=== PATIENT | male | born 1970 | race Caucasian/White ===

== ENCOUNTER → 2017-09-28 | Outpatient (CLI) | payer OTHER ==
[~2017-09-28] MED LIST: IOPAMIDOL (ISOVUE-370) 150 ML BTL IV ONE
== END ==
LOC: FIMAGING 07:45
PROVIDERS: ATTEND Family Medicine
DX: M79.662 Pain in left lower leg (principal); R53.1 Weakness; I77.1 Stricture of artery
CPT/HCPCS: Q9967

== ENCOUNTER 2018-01-28 03:27 | Observation (INO) | payer OTHER ==
--- NOTE | 2018-01-28 03:51 | EDPHY ---
H & P Stated Complaint: lower abd pain around incision from vascular surgery 3 weeks ago. 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 He had a vascular surgery on his left iliac artery with a bovine graft 3 weeks ago at [facility]. 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 He states that he has been recovering well until this evening when he noticed the lump and had increased pressure in the area. No urinary symptoms. No changes in bowel movements. No fevers. No vomiting. He had a history of previous surgery in the left inguinal hernia. REVIEW OF SYSTEMS: Constitutional: denies: chills, fever, recent illness, recent injury EENTM: denies: blurred vision, double vision, nose congestion Respiratory: denies: cough, shortness of breath Cardiac: denies: chest pain, irregular heart rate, lightheadedness, palpitations Gastrointestinal/Abdominal: See HPI Genitourinary: denies: dysuria, frequency, hematuria, pain Musculoskeletal: denies: joint pain, muscle pain Skin: denies: lesions, rash, jaundice, bruising Neurological: denies: headache, numbness, paresthesia, tingling, dizziness, weakness Hematologic/Lymphatic: denies: blood clots, easy bleeding, easy bruising Immunologic/allergic: denies: HIV/AIDS, transplant EXAM: GENERAL: Well-appearing, well-nourished and in no acute distress. HEAD: Atraumatic, normocephalic. EYES: Pupils equal round and reactive to light, extraocular movements intact, sclera anicteric, conjunctiva are normal. ENT: TMs normal, nares patent, oropharynx clear without exudates. Moist mucous membranes. NECK: Normal range of motion, supple without lymphadenopathy or JVD. LUNGS: Breath sounds clear to auscultation bilaterally and equal. No wheezes rales or rhonchi. HEART: Regular rate and rhythm without murmurs, rubs or gallops. ABDOMEN: Small fluctuant lump but the medial aspect of the incision, not dehisced, not draining. Not erythematous. Soft, nontender, normoactive bowel sounds. No guarding, no rebound. BACK: No CVA tenderness, no spinal tenderness, step-offs or deformities EXTREMITIES: Normal range of motion, no pitting or edema. No clubbing or cyanosis. NEUROLOGICAL: Cranial nerves II through XII grossly intact. Normal speech, normal gait. 5/5 strength, normal movement in all extremities, normal sensation PSYCH: Normal mood, normal affect. SKIN: Warm, dry, normal turgor, no visible rashes or lesions. 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 R femur ORIF, L inguinal hernia repair. - Family History Significant Family History: No pertinent family hx - Social History Smoking Status: Never smoked Alcohol Use: None Constitutional: Initial Vital Signs Temperature (C) 36.4 C 01/28/18 03:42 Heart Rate 68 01/28/18 03:42 Respiratory Rate 14 01/28/18 03:42 Blood Pressure 146/91 H 01/28/18 03:42 O2 Sat (%) 98 01/28/18 03:42 O2 Delivery Mode Room Air Allergies/Adverse Reactions: No Known Allergies Allergy (Unverified 01/28/18 03:41) Home Medications: Medication Instructions Recorded Aspirin [Aspirin 81mg (*)] 01/28/18 Ergocalciferol [Vitamin D2 (*)] 01/28/18 Medical Decision Making - Diagnostics Imaging: Discussed imaging studies w/ event promoter Radiologist ED Course/Re-evaluation: 5:20 a.m. I discussed the case patient and . Lab work is reassuring however CT scan is concerning for small-bowel volvulus verses internal hernia. Also possibly pseudoaneurysm at the incision site. Radiology is recommending possibly another CT scan with rectal contrast and also and ultrasound with Doppler to evaluate the incision questionable pseudoaneurysm. Spoke with Dr. Marleny Olmos who accepted the patient to her service. Family would prefer to drive the patient themselves. Differential Diagnosis: Partial list of the Differential diagnosis considered include but were not limited to; urinary tract infection, hernia, volvulus, seroma, pseudoaneurysm and although unlikely based on the history and physical exam, I also considered abscess, ischemia. I discussed these differential diagnoses and the plan with the patient as well as the usual and expected course. The patient understands that the diagnosis is provisional and that in medicine we are not always correct and that further workup is often warranted. Usual and customary warnings were given. All of the patient's questions were answered. The patient was instructed to return to the emergency department should the symptoms at all worsen or return, otherwise to followup with the physician as we discussed. - Data Points Laboratory Results: Laboratory Results 01/28/18 03:50 01/28/18 01/28/18 01/28/18 04:00 03:59 03:50 WBC 8.33 10^3/uL 10^3/uL (3.80-9.50) RBC 4.86 10^6/uL 10^6/uL (4.40-6.38) Hgb 15.6 g/dL g/dL (13.7-17.5) Hct 45.0 % % (40.0-51.0) MCV 92.6 fL fL (81.5-99.8) MCH 32.1 pg pg (27.9-34.1) MCHC 34.7 g/dL g/dL (32.4-36.7) RDW 12.2 % % (11.5-15.2) Plt Count 369 10^3/uL 10^3/uL (150-400) MPV 9.1 fL fL (8.7-11.7) Neut % (Auto) 66.5 % % (39.3-74.2) Lymph % (Auto) 21.5 % % (15.0-45.0) [place] % (Auto) 6.1 % % (4.5-13.0) Eos % (Auto) 4.9 % % (0.6-7.6) Baso % (Auto) 0.8 % % (0.3-1.7) Nucleat RBC Rel Count 0.0 % % (0.0-0.2) Absolute Neuts (auto) 5.53 10^3/uL 10^3/uL (1.70-6.50) Absolute Lymphs (auto) 1.79 10^3/uL 10^3/uL (1.00-3.00) Absolute Monos (auto) 0.51 10^3/uL 10^3/uL (0.30-0.80) Absolute Eos (auto) 0.41 10^3/uL H 10^3/uL (0.03-0.40) Absolute Basos (auto) 0.07 10^3/uL 10^3/uL (0.02-0.10) Absolute Nucleated RBC 0.00 10^3/uL 10^3/uL (0-0.01) Immature Gran % 0.2 % % (0.0-1.1) Immature Gran # 0.02 10^3/uL 10^3/uL (0.00-0.10) POC Sodium 139 mEq/L mEq/L (135-145) POC Potassium 3.9 mEq/L mEq/L (3.3-5.0) POC Chloride 104.0 mEq/L mEq/L (97-110) POC Total CO2 29 mEq/L mEq/L (22-31) POC BUN 15 mg/dL mg/dL (7-23) POC Creatinine 1.0 mg/dL mg/dL (0.7-1.3) POC Glucose 107 mg/dL H mg/dL (70-100) POC Lactic Acid Lior 1.6 mmol/L mmol/L (0.7-2.1) POC Calcium 9.8 mg/dL mg/dL (8.5-10.4) POC Total Bilirubin 1.0 mg/dL mg/dL (0.1-1.4) POC AST 28 IU/L IU/L (17-59) POC ALT 21 IU/L IU/L (21-72) POC Alk Phosphatase 73 IU/L IU/L (38-126) POC Total Protein 7.0 g/dL g/dL (6.3-8.2) POC Albumin 3.4 g/dL L g/dL (3.5-5.0) Point of Care Test Results: Chemistry 01/28/18 04:00 POC Sodium 139 mEq/L mEq/L (135-145) POC Potassium 3.9 mEq/L mEq/L (3.3-5.0) POC Chloride 104.0 mEq/L mEq/L (97-110) POC Total CO2 29 mEq/L mEq/L (22-31) POC BUN 15 mg/dL mg/dL (7-23) POC Creatinine 1.0 mg/dL mg/dL (0.7-1.3) POC Glucose 107 mg/dL H mg/dL (70-100) POC Calcium 9.8 mg/dL mg/dL (8.5-10.4) POC Total Bilirubin 1.0 mg/dL mg/dL (0.1-1.4) POC AST 28 IU/L IU/L (17-59) POC ALT 21 IU/L IU/L (21-72) POC Alk Phosphatase 73 IU/L IU/L (38-126) POC Total Protein 7.0 g/dL g/dL (6.3-8.2) POC Albumin 3.4 g/dL L g/dL (3.5-5.0) Blood Gas/Lactic Acid-Venous 01/28/18 03:59 POC Lactic Acid Lior 1.6 mmol/L mmol/L (0.7-2.1) Urine Dip Collection Date 01/28/18 Collection Time 04:05 Specific [place] (1.002-1.030) 1.020 PH (5.0-7.5) 7.0 Leukocytes (Negative) Negative Nitrites (Negative) Negative Protein (Negative) Negative Glucose (Negative) Negative Ketones (Negative) Negative Urobilnogen (0.2-1.0 EU) 0.2 Bilirubin (Negative) Negative Blood (Negative) Negative Departure - Departure Disposition: [facility] Acute Clinical Impression: Postoperative abdominal pain Condition: Fair
[2018-01-28] MEDS ORDERED: IOPAMIDOL (ISOVUE-300) 100 ML BTL ONE (04:07)
[2018-01-28 04:54] LABS: PLATELET COUNT 369 10^3/uL (150-400)
[2018-01-28 11:47] VITALS: BP 114/69
== END 2018-01-28 15:26 | disposition home or self-care (01) ==
LOC: CED 03:27 → CEDHOLD 05:27 → F3E 06:50
PROVIDERS: ADMIT Surgery; ATTEND Surgery
DX: R10.30 Lower abdominal pain, unspecified (principal); Z98.890 Other specified postprocedural states
CPT/HCPCS: 74018; 74177; 93922; 93990; 99285; G0378; 80053-PO; 83605-PO; Q9967